=== PATIENT | male | born 1935 | race Caucasian/White ===

== ENCOUNTER → 2016-06-12 | Outpatient (CLI) | payer MEDICARE ==
[~2016-06-12] MED LIST: AMLO-511 PO; BICA50TA3 PO; CARV3 PO; DOCU250C91 PO; FINA5TAB41 PO; INSLAN SQ; IOVERSOL 350 MG/ML 100 ML VIAL ONE; LEVO250T2 PO; LUBI24CA2 PO; MEDRONATE TC99M/UD<30 MCL ISOTOPE 1 EA INJ INJ ONE; MEMA5 PO; NATE120 PO; SIMV20TA6 PO; SODIUM CHLORIDE 0.9% 100 ML ONE; TAMS0.4C32 PO; WARF7.5 PO
== END | disposition home or self-care (01) ==
LOC: RADMN 08:08
PROVIDERS: ATTEND Urology
DX: C61 Malignant neoplasm of prostate (principal); N32.89 Other specified disorders of bladder; Z90.49 Acquired absence of other specified parts of digestive tract; K44.9 Diaphragmatic hernia without obstruction or gangrene; I70.0 Atherosclerosis of aorta; Z95.828 Presence of other vascular implants and grafts
CPT/HCPCS: 74177; 78306; A9503; J7050; Q9967

== ENCOUNTER → 2017-03-27 | Outpatient (CLI) | payer MEDICARE ==
[~2017-03-27] MED LIST changes: -IOVERSOL 350 MG/ML 100 ML VIAL ONE; -MEDRONATE TC99M/UD<30 MCL ISOTOPE 1 EA INJ INJ ONE; -SODIUM CHLORIDE 0.9% 100 ML ONE
== END | disposition home or self-care (01) ==
LOC: RADPV 09:34
PROVIDERS: ATTEND Internal Medicine
DX: M17.12 Unilateral primary osteoarthritis, left knee (principal)